=== PATIENT | male | born 1935 | race Hispanic/Latino ===

== ENCOUNTER 2023-11-16 05:43 | Emergency (ER) | payer OTHER ==
[~2023-11-16] VITALS: Ht 170.2 cm; Wt 70.3 kg
[2023-11-16 06:20] VITALS: BP 138/74; PULSE 72; RESP 18; O2SAT 99
[2023-11-17] MEDS ORDERED: DUTA0.5C37 PO (01:32)
[2023-11-17] MEDS ORDERED: TAMS-1 PO (01:32)
[2023-11-17] MEDS ORDERED: METF-446 PO (22:33)
[2023-11-17] MEDS ORDERED: ATOR40TA69 PO (22:33)
[2023-11-17] MEDS ORDERED: LISI5TAB21 PO (22:33)
[2023-11-17] MEDS ORDERED: AMLO-257 PO (22:33)
[2023-11-17] MEDS ORDERED: GLIP-162 PO (22:33)
== END 2023-11-16 08:11 | disposition home or self-care (01) ==
LOC: EDH 05:43
DX: R33.9 Retention of urine, unspecified (principal); E11.9 Type 2 diabetes mellitus without complications; E78.00 Pure hypercholesterolemia, unspecified; I10 Essential (primary) hypertension
CPT/HCPCS: 51702

== ENCOUNTER → 2023-12-23 | Outpatient (CLI) | payer OTHER ==
[~2023-12-23] MED LIST: AMLO-257 PO; AMOX-426 PO; ATOR40TA71 PO; DUTA0.5C37 PO; GLIP-162 PO; LISI5TAB21 PO; METF-446 PO; TAMS-1 PO
== END | disposition home or self-care (01) ==
LOC: SHCH 10:04
PROVIDERS: ATTEND Internal Medicine
DX: I08.3 Combined rheumatic disorders of mitral, aortic and tricuspid valves (principal); I11.9 Hypertensive heart disease without heart failure
CPT/HCPCS: 93306

== ENCOUNTER 2024-01-14 06:43 | Day surgery (SDC) | payer OTHER ==
[2024-01-12 13:38] LABS: BASOPHILS # (AUTO) 0.02 K/uL (0.00-0.20); BASOPHILS % (AUTO) 0.3 % (0.0-5.0); EOSINOPHILS # (AUTO) 0.18 K/uL (0.00-0.70); EOSINOPHILS % (AUTO) 2.5 % (0.0-8.0); HEMATOCRIT 35.5 % (42-54); IMMATURE GRANULOCYTE ABSOLUTE 0.03 K/uL (0-1); LYMPHOCYTES # (AUTO) 1.5 K/uL (1.0-4.8); LYMPHOCYTES % (AUTO) 20.1 % (21.0-51.0); MEAN CORPUSCULAR HEMOGLOBIN 30.8 pg (27.0-33.0); MEAN CORPUSCULAR HGB CONC 33.2 g/dL (32.0-36.0); MEAN CORPUSCULAR VOLUME 92.7 fL (79-99); MONOCYTES # (AUTO) 0.5 K/uL (0.1-1.0); MONOCYTES % (AUTO) 7.2 % (3.0-13.0); NEUTROPHILS % (AUTO) 69.5 % (40.0-77.0); PLATELET COUNT (AUTO) 269 K/uL (130-400); RED BLOOD CELL COUNT(AUTO) 3.83 MIL/uL (4.50-6.20); RED CELL DISTRIBUTION WIDTH 13.2 % (11.0-15.5); WHITE BLOOD COUNT (AUTO) 7.2 K/uL (4.8-10.8)
[2024-01-12 13:45] LABS: CREATININE 1.2 mg/dL (0.5-1.3); POTASSIUM 4.6 mmol/L (3.5-5.1)
[2024-01-12 14:00] VITALS: BP 138/77; PULSE 67; RESP 16
[2024-01-14] VITALS (16 sets, daily range): BP systolic 123–137; BP diastolic 47–68; PULSE 55–77; RESP 15–20
[~2024-01-14] VITALS: Ht 167.6 cm; Wt 64.2 kg
[~2024-01-14 06:43] MED LIST changes: -AMOX-426 PO; +ATOR40TA69 PO; -ATOR40TA71 PO
[2024-01-14] MEDS ORDERED: BUPIVACAINE/PF 0.25% 30ML VIAL IJ ONE (07:10)
[2024-01-14] MEDS ORDERED: ROCURONIUM BROMIDE 10MG/1ML 5ML VL ONE (07:27)
[2024-01-14] MEDS ORDERED: LIDOCAINE PF 100MG/5ML (2%) SYRINGE 5ML ONE (07:27)
[2024-01-14] MEDS ORDERED: FENTANYL CITRATE PF 50 MCG/1 ML 2ML VIAL ONE (07:28)
[2024-01-14] MEDS ORDERED: PROPOFOL 10 MG/ML 20ML VIAL IV ONE (07:28)
[2024-01-14] MEDS: CEFTRIAXONE 1G VIAL IVPB ONE ×2 (07:30→08:40)
[2024-01-14] MEDS ORDERED: ACETAMINOPHEN 1,000 MG/100 ML VIAL IV ONE (07:33)
[2024-01-14] MEDS ORDERED: FAMOTIDINE 20MG VIAL IV ONE (07:34)
[2024-01-14] MEDS: CEFTRIAXONE 1G VIAL ONE (07:34)
[2024-01-14] MEDS: 0.9%NACL 1000ML 1,000 ML IV ONE (07:34)
[2024-01-14] MEDS ORDERED: KETAMINE 50MG/ML SYRINGE 50 MG/ML DISP.SYRIN ONE (08:13)
[2024-01-14] MEDS ORDERED: DEXAMETHASONE SOD PHOSPHATE 10MG/ML 1ML VIAL ONE (08:33)
[2024-01-14] MEDS ORDERED: ONDANSETRON 4MG INJ ONE (08:33)
[2024-01-14] MEDS ORDERED: EPHEDRINE SULFATE 50 MG/ML AMPULE ONE (08:43)
[2024-01-14] MEDS ORDERED: GENTAMICIN SULFATE 80 MG/2 ML VIAL ONE (09:11)
[2024-01-14] MEDS ORDERED: NEOSTIGMINE METHYLSULFATE 1MG/ML IV ONE (09:37)
[2024-01-14] MEDS ORDERED: GLYCOPYRROLATE 0.2 MG/ML 5 ML VIAL ONE (09:37)
[2024-01-14] MEDS: PHENAZOPYRIDINE HCL 200 MG TABLET PO ONE (12:10)
== END 2024-01-14 11:55 | disposition home or self-care (01) ==
LOC: DAH 06:43
PROVIDERS: ATTEND Urology
DX: N40.1 Benign prostatic hyperplasia with lower urinary tract symptoms (principal); R33.8 Other retention of urine; I11.0 Hypertensive heart disease with heart failure; I50.9 Heart failure, unspecified; E11.9 Type 2 diabetes mellitus without complications; N13.30 Unspecified hydronephrosis; Z79.01 Long term (current) use of anticoagulants; Z79.899 Other long term (current) drug therapy
CPT/HCPCS: 80048; 85025; 36415; 52648; 82948 ×2; 88305; 93005; A6260; A4663; J7030 ×2; J7120; A4354; A4340; J3490 ×5; J3010; J1100; J2001; J1580 ×2; J0696 ×2; J2704; J2405; J2710; A4358 ×2; A4215; A4223; A4222; A4221; A4600; A4510; A5113; J0665

== ENCOUNTER 2024-02-18 23:02 | Emergency (ER) | payer OTHER ==
[~2024-02-18] VITALS: Ht 160 cm; Wt 61.2 kg
[2024-02-18 23:30] LABS: BASOPHILS # (AUTO) 0.02 K/uL (0.00-0.20); BASOPHILS % (AUTO) 0.2 % (0.0-5.0); EOSINOPHILS # (AUTO) 0.32 K/uL (0.00-0.70); EOSINOPHILS % (AUTO) 3.8 % (0.0-8.0); HEMATOCRIT 34.2 % (42-54); IMMATURE GRANULOCYTE ABSOLUTE 0.04 K/uL (0-1); LYMPHOCYTES # (AUTO) 1.6 K/uL (1.0-4.8); LYMPHOCYTES % (AUTO) 18.7 % (21.0-51.0); MEAN CORPUSCULAR HEMOGLOBIN 30.7 pg (27.0-33.0); MEAN CORPUSCULAR HGB CONC 33.9 g/dL (32.0-36.0); MEAN CORPUSCULAR VOLUME 90.5 fL (79-99); MONOCYTES # (AUTO) 0.7 K/uL (0.1-1.0); MONOCYTES % (AUTO) 8.4 % (3.0-13.0); NEUTROPHILS # (AUTO) 5.8 K/uL (1.8-7.7); NEUTROPHILS % (AUTO) 68.4 % (40.0-77.0); PLATELET COUNT (AUTO) 266 K/uL (130-400); RED BLOOD CELL COUNT(AUTO) 3.78 MIL/uL (4.50-6.20); RED CELL DISTRIBUTION WIDTH 13.9 % (11.0-15.5); WHITE BLOOD COUNT (AUTO) 8.5 K/uL (4.8-10.8)
[2024-02-18 23:39] LABS: CREATININE 1.1 mg/dL (0.5-1.3); POTASSIUM 4.1 mmol/L (3.5-5.1)
[2024-02-19 00:03] LABS: APPEARANCE,URINE CLOUDY (CLEAR); BACTERIA,URINE RARE /HPF (None Seen); BILIRUBIN,URINE NEGATIVE (NEGATIVE); COLOR,URINE LIGHT-RED (YELLOW); GLUCOSE, URINE (UA) NEGATIVE (NEGATIVE); KETONES,URINE NEGATIVE (NEGATIVE); LEUKOCYTE ESTERASE ,URINE 500 Leu/uL (NEGATIVE); NITRATE,URINE NEGATIVE (NEGATIVE); OCCULT BLOOD,URINE LARGE (NEGATIVE); PROTEIN,URINE 100 mg/dL (NEGATIVE); RBC,URINE TNTC /HPF (0-1); SQUAMOUS EPITHELIAL CELL,UR RARE /HPF (0-2); UROBILINOGEN,URINE 0.2 mg/dL (0.2-1.0); WBC CLUMP FEW /HPF (0-1); WBC,URINE TNTC /HPF (0-1)
[2024-02-19] MEDS: LIDOCAINE HCL 2% VISCOUS 15 ML UDCUP ONE (01:23)
[2024-02-19] MEDS ORDERED: CEPH500B PO (01:48)
[2024-02-19 01:51] VITALS: BP 165/68; PULSE 65; RESP 18; O2SAT 97
== END 2024-02-19 02:00 | disposition home or self-care (01) ==
LOC: EDH 23:02
DX: N39.0 Urinary tract infection, site not specified (principal); I10 Essential (primary) hypertension; E11.9 Type 2 diabetes mellitus without complications; E78.00 Pure hypercholesterolemia, unspecified; Z20.822 Contact with and (suspected) exposure to COVID-19; Z79.84 Long term (current) use of oral hypoglycemic drugs; Z79.899 Other long term (current) drug therapy; Z98.890 Other specified postprocedural states
CPT/HCPCS: 36415; 74176; 80048; 81001; 85025; 87088

== ENCOUNTER 2024-02-22 06:10 | Emergency (ER) | payer OTHER ==
[~2024-02-22] VITALS: Ht 170.2 cm; Wt 65.8 kg
[~2024-02-22 06:10] MED LIST changes: +CEPH500B PO
[2024-02-22 07:45] VITALS: BP 133/72; PULSE 78; RESP 18; O2SAT 99
== END 2024-02-22 07:47 | disposition home or self-care (01) ==
LOC: EDH 06:10
DX: T83.098A Other mechanical complication of other urinary catheter, initial encounter (principal); N39.0 Urinary tract infection, site not specified; R31.9 Hematuria, unspecified; E11.9 Type 2 diabetes mellitus without complications; E78.00 Pure hypercholesterolemia, unspecified; I10 Essential (primary) hypertension; Z79.84 Long term (current) use of oral hypoglycemic drugs; Z79.899 Other long term (current) drug therapy; Y82.9 Unspecified medical devices associated with adverse incidents; Y92.89 Other specified places as the place of occurrence of the external cause
CPT/HCPCS: 99282

== ENCOUNTER → 2024-06-12 | Outpatient (CLI) | payer OTHER | END | disposition home or self-care (01) | LOC: SHCH 14:49 | PROVIDERS: ATTEND Internal Medicine | DX: I70.293 Other atherosclerosis of native arteries of extremities, bilateral legs (principal) | CPT/HCPCS: 93925 ==

== ENCOUNTER → 2024-06-22 | Outpatient (CLI) | payer OTHER ==
[2024-06-22 16:23] LABS: BASOPHILS # (AUTO) 0.01 K/uL (0.00-0.20); BASOPHILS % (AUTO) 0.1 % (0.0-5.0); EOSINOPHILS % (AUTO) 1.2 % (0.0-8.0); HEMATOCRIT 29.5 % (42-54); IMMATURE GRANULOCYTE ABSOLUTE 0.05 K/uL (0-1); LYMPHOCYTES # (AUTO) 1.1 K/uL (1.0-4.8); LYMPHOCYTES % (AUTO) 13.3 % (21.0-51.0); MEAN CORPUSCULAR HEMOGLOBIN 30.9 pg (27.0-33.0); MEAN CORPUSCULAR HGB CONC 33.6 g/dL (32.0-36.0); MEAN CORPUSCULAR VOLUME 92.2 fL (79-99); MONOCYTES # (AUTO) 0.5 K/uL (0.1-1.0); MONOCYTES % (AUTO) 5.9 % (3.0-13.0); NEUTROPHILS # (AUTO) 6.4 K/uL (1.8-7.7); NEUTROPHILS % (AUTO) 78.9 % (40.0-77.0); PLATELET COUNT (AUTO) 228 K/uL (130-400); RED CELL DISTRIBUTION WIDTH 13.5 % (11.0-15.5); WHITE BLOOD COUNT (AUTO) 8.1 K/uL (4.8-10.8)
[2024-06-22 16:45] LABS: CREATININE 12.4 mg/dL (0.5-1.3)
[2024-06-22 16:54] LABS: POTASSIUM 7.1 mmol/L (3.5-5.1)
== END | disposition home or self-care (01) ==
LOC: LAB 15:36
PROVIDERS: ATTEND Internal Medicine
DX: I11.0 Hypertensive heart disease with heart failure (principal); I50.32 Chronic diastolic (congestive) heart failure; I38 Endocarditis, valve unspecified; I36.1 Nonrheumatic tricuspid (valve) insufficiency
CPT/HCPCS: 36415; 80048; 85025

== ENCOUNTER 2024-07-31 01:36 | Observation (INO) | payer OTHER ==
[~2024-07-31] VITALS: Ht 170.2 cm; Wt 70.2 kg
[~2024-07-31 01:36] MED LIST changes: +AMOX-426 PO; +ASCO500T20 PO; -CEPH500B PO; +DOCU-116 PO; +FLUC100T12 PO; +GABA-529 PO; +LACT-441 PO; -LISI5TAB21 PO; -METF-446 PO; +PHEN-846 PO; +POLY17PO4 PO
--- NOTE | 2024-07-31 01:50 | ERN ---
ED Note History of Present Illness Stated Complaint: LEFT LEG AND BILATERAL GROIN PAIN Chief Complaint: Multiple Complaints Time Seen by MD: 01:40 Dictation: PATIENT IS AN 89-YEAR-OLD MALE HERE WITH HIS DAUGHTER WITH COMPLAINTS OF INGUINAL AND PELVIC PAIN HE HAS HAD FOR 3-4 MONTHS. PATIENT HAS A HISTORY OF PROSTATE AND BLADDER CANCER, HYPERTENSION DIABETES IN HIS PENDING HIS 1ST APPOINTMENT WITH ONCOLOGIST TODAY AT 15:00 HOURS. DAUGHTER STATES HE HAS BEEN IN PAIN AND TAKES TRAMADOL DAILY HOWEVER IT IS LATELY NOT BEEN WORKING WELL IT WAS IN THE PAST. SHE STATES HE HAS HAD NO FEVER NO CHILLS NO NAUSEA VOMITING. BILATERAL NEPHROSTOMY TUBES ARE IN PLACE. UROLOGIST IS DR. CABELLO Allergies: Coded Allergies: No Known Allergies (Unverified Allergy, Unknown, 11/16/23) Home Meds Active Scripts Amoxicillin/Potassium Clav (Augmentin 500-125 Tablet) 500 Mg-125 Mg Tablet, 1 TAB PO BID for 3 Days, #14 TAB 0 Refills Prov:JERROD FOSS [facility] 07/24/24 Lactulose (Lactulose) 10 Gram/15 Ml Solution, 30 ML PO BID for constipation, #500 ML 0 Refills Prov:JERROD FOSS [facility] 07/24/24 Docusate Sodium (Colace) 100 Mg Capsule, 1 CAP PO BID for 30 Days, #60 CAP 0 Refills Prov:JERROD FOSS 07/24/24 Polyethylene Glycol 3350 (Miralax) 17 Gram Powd.pack, 17 GM PO DAILY for 30 Days, #30 DAYS Prov:JERROD FOSS [facility] 07/24/24 Phenazopyridine HCl (Pyridium) 100 Mg Tab, 1 TAB PO TID for urinary discomfort for 3 Days, #9 TAB 0 Refills Prov:JERROD FOSS 07/24/24 Fluconazole (Fluconazole) 100 Mg Tablet, 1 TAB PO DAILY for 7 Days, #7 TAB 0 Refills Prov:AKILAH FLYNN [employer]LECTION SPECIALIST 07/13/24 Ascorbic Acid (Vitamin C) 500 Mg Tablet, 500 MG PO DAILY, #30 TAB Prov:AKILAH FLYNN N DATA COLLECTION SPECIALIST 07/13/24 Reported Medications Gabapentin (Gabapentin) 100 Mg Capsule, 100 MG PO BID, CAP 07/19/24 Atorvastatin Calcium (LIPITOR) 40 Mg Tablet, 40 MG PO DAILY, TAB 01/13/24 Amlodipine Besylate (Amlodipine Besylate) 5 Mg Tablet, 5 MG PO DAILY, TAB 12/15/23 Glipizide (Glipizide ER) 5 Mg Tab.er.24, 5 MG PO DAILYBKFST 11/17/23 Dutasteride (Dutasteride) 0.5 Mg Capsule, 0.5 MG PO HS, CAP 11/17/23 Tamsulosin HCl (Flomax) 0.4 Mg Cap.er.24h, 0.4 MG PO HS, CAPSULE. 11/17/23 Past Medical History Past Medical History: Diabetes-Type II, Hypertension, Renal Failure, Other Additional Past Medical Hx: PROSTATE CA Surgical History: Other Surgical History Other: NEPHROSTOMY TUBES PSYCH History: no pertinent psych hx Family History: Negative Social History: Negative RN Note Reviewed/Agreed w/PFSH: Yes Review of System Dictation CONSTITUTIONAL: NEGATIVE EXCEPT FOR HPI HEAD/FACE: NEGATIVE EXCEPT FOR HPI EENT: NEGATIVE EXCEPT FOR HPI RESPIRATORY: NEGATIVE EXCEPT FOR HPI GASTROINTESTINAL/ABDOMINAL: NEGATIVE EXCEPT FOR HPI BILATERAL SUPRAPUBIC AND BLADDER PAIN. GENITOURINARY: NEGATIVE EXCEPT FOR HPI MUSCULOSKELETAL: NEGATIVE EXCEPT FOR HPI INTEGUMENTARY: NEGATIVE EXCEPT FOR HPI NEUROLOGICAL/PSYCH: NEGATIVE EXCEPT FOR HPI HEMATOLOGIC/LYMPHATIC: NEGATIVE EXCEPT FOR HPI ALL SYSTEMS NEGATIVE, EXCEPT NOTED ABOVE. 13 POINT REVIEW OF SYSTEMS ASSESSED AND ALL NEGATIVE EXCEPT FOR ABOVE. Initial Vital Sign VS Vital Signs Date Time Temp Pulse Resp B/P (MAP) Pulse Ox O2 Delivery O2 Flow Rate FiO2 07/31/24 01:37 97.3 94 20 85/63 98 Room Air 07/31/24 01:59 0 21 Physical Exam Dictation VITAL SIGNS REVIEWED GENERAL APPEARANCE: ALERT, ORIENTED X 3, PATIENT APPEARS VERY WEAK AND DEBILITATED VERY PALE HEAD AND FACE: NON-TRAUMATIC. EYES: PERRL, PINK CONJUNCTIVAS, EYELID NO TRAUMA, ANTERIOR CHAMBER WITH ARCUS SENILIS. EARS: PINNAS INTACT AND NO SIGNS OF TRAUMA OR ERYTHEMA EAR CANALS CLEAR AND NO DISCHARGE TM NO ERYTHEMA NOSE: NO DISCHARGE, NO BLEEDING. OROPHARYNX: MOUTH NORMAL, TONGUE PINK, PHARYNX CLEAR,NO ERYTHEMA, TONSILS NO EXUDATES, NO ABSCESSES NOTED, MUCOUS MEMBRANE MOIST NECK: SUPPLE, NON-TENDER, NO THYROMEGALY, NO MASSES, NO JVD, NO BRUITS BREAST:DEFERRED CHEST:NO TENDERNESS, NO CREPITUS, NO PARADOXICAL MOVEMENT, NO RETRACTIONS LUNGS:CLEAR, WELL-VENTILATED, SYMMETRIC, NO RALES, NO WHEEZING, NO RHONCHI, NO STRIDOR, GOOD BREATH SOUNDS BILATERALLY HEART: REGULAR RATE, REGULAR RHYTHM, NO MURMUR, NO GALLOPS VASCULAR: NO PERIPHERAL EDEMA, ABDOMEN: SOFT, POSITIVE BOWEL SOUNDS, NONDISTENDED, NO GUARDING, N DIFFUSE PELVIC TENDERNESS WITH PALPATION. RECTAL: DEFERRED GENITAL: DEFERRED BILATERAL NEPHROSTOMY TUBES IN PLACE DRAINING TO DRAIN BAG. NEUROLOGICAL: NORMAL SPEECH, 4/+5 STRENGTH TO ALL EXTREMITIES GENERALIZED WEAKNESS. MUSCULOSKELETAL: NECK NONTENDER, FULL RANGE OF MOTION, BACK NONTENDER, FULL RANGE OF MOTION, EXTREMITIES: NONTENDER, FULL RANGE OF MOTION SKIN: COLOR PINK, DRY, NO TURGOR, NO RASH, NO LACERATIONS, NO ABRASIONS, NO CONTUSIONS. LYMPHATIC: DEFERRED Results (Laboratory/Radiology) Laboratory/Radiology Laboratory Tests Test 07/31/24 01:52 07/31/24 02:07 White Blood Count 13.3 K/uL (4.8-10.8) H Red Blood Count 3.40 MIL/uL (4.50-6.20) L Hemoglobin 10.4 g/dL (14.0-18.0) L Hematocrit 30.7 % (42-54) L Mean Corpuscular Volume 90.3 fL (79-99) Mean Corpuscular Hemoglobin 30.6 pg (27.0-33.0) Mean Corpuscular Hemoglobin Concent 33.9 g/dL (32.0-36.0) Red Cell Distribution Width 14.0 % (11.0-15.5) Platelet Count 356 K/uL (130-400) Mean Platelet Volume 8.6 fL (7.5-10.5) Immature Granulocyte % (Auto) 0.5 % (0-1) Neutrophils (%) (Auto) 88.2 % (40.0-77.0) H Lymphocytes (%) (Auto) 6.2 % (21.0-51.0) L Monocytes (%) (Auto) 4.3 % (3.0-13.0) Eosinophils (%) (Auto) 0.6 % (0.0-8.0) Basophils (%) (Auto) 0.2 % (0.0-5.0) Neutrophils # (Auto) 11.7 K/uL (1.8-7.7) H Lymphocytes # (Auto) 0.8 K/uL (1.0-4.8) L Monocytes # (Auto) 0.6 K/uL (0.1-1.0) Eosinophils # (Auto) 0.08 K/uL (0.00-0.70) Basophils # (Auto) 0.02 K/uL (0.00-0.20) Absolute Immature Granulocyte (auto 0.07 K/uL (0-1) Nucleated Red Blood Cells 0.0 % (0.0-0.19) Sodium Level 130 mmol/L (136-145) L Potassium Level 5.0 mmol/L (3.5-5.1) Chloride Level 97 mmol/L (101-111) L Carbon Dioxide Level 22 mmol/L (21-32) Blood Urea Nitrogen 22 mg/dL (7-18) H Creatinine 1.4 mg/dL (0.5-1.3) H Glomerular Filtration Rate Calc 48 mL/min (>90) Random Glucose 204 mg/dL (70-105) H Lactic Acid Level 3.3 mmol/L (0.8-2.5) H Total Calcium 8.7 mg/dL (8.5-10.1) Magnesium Level 1.40 mg/dL (1.80-2.40) L Urine Color YELLOW (YELLOW) Urine Appearance CLOUDY (CLEAR) H Urine pH 6.0 (5.0-8.0) Urine Specific [place] 1.010 (1.001-1.031) Urine Protein 10 mg/dL (NEGATIVE) H Urine Glucose (UA) NEGATIVE mg/dL (NEGATIVE) Urine Ketones NEGATIVE mg/dL (NEGATIVE) Urine Occult Blood +- (TRACE) (NEGATIVE) H Urine Nitrate 2+ (NEGATIVE) H Urine Bilirubin NEGATIVE mg/dL (NEGATIVE) Urine Urobilinogen 0.2 mg/dL (0.2-1.0) Urine Leukocyte Esterase 75 Luz/uL (NEGATIVE) H Labs Reviewed?: Yes ED Course ED Course Orders Procedure Category Date Status Time Cbc With Differential LAB 07/31/24 In Process 01:42 Basic Metabolic Panel LAB 07/31/24 Complete 01:42 Lactic Acid LAB 07/31/24 Complete 01:42 12 Lead Ekg Tracing- EKG 07/31/24 Logged Technical 01:42 Magnesium LAB 07/31/24 Complete 01:42 Urinalysis Profile LAB 07/31/24 In Process 01:43 0.9%Nacl 1000ml (Ns PHA 07/31/24 Complete 1000ml) 02:00 Morphine 2mg Syg PHA 07/31/24 Complete (Morphine 2mg Syg) 02:00 Ondansetron 4mg Inj PHA 07/31/24 Complete (Zofran 4mg Inj) 02:00 0.9%Nacl 1000ml (Ns PHA 07/31/24 In Process 1000ml) 02:30 Ceftriaxone 2gm Vial PHA 07/31/24 Complete (Rocephin 2gm Inj) 02:30 Chest 1vw RAD 07/31/24 Taken 02:16 Culture Urine SHEYLA 07/31/24 Logged 02:26 Current Medications Medications (Trade) Dose Ordered Sig/Supriya Route PRN Reason Start Time Stop Time Status Last Admin Dose Admin Ceftriaxone Sodium (Rocephin 2gm Inj) 2 gm ONCE ONCE IVPB 07/31/24 02:30 07/31/24 02:31 DC 07/31/24 02:24 Morphine Sulfate (morPHINE 2MG SYG) 2 mg ONCE ONCE IVP 07/31/24 02:00 07/31/24 02:01 DC 07/31/24 01:52 Ondansetron HCl (zoFRAN 4MG INJ) 4 mg ONCE ONCE IVP 07/31/24 02:00 07/31/24 02:01 DC 07/31/24 01:51 Sodium Chloride 1,000 ml @ 0 mls/hr ONCE ONCE IV 07/31/24 02:00 07/31/24 02:01 DC 07/31/24 01:52 Sodium Chloride 1,836 ml @ 612 mls/hr ONCE ONCE IV 07/31/24 02:30 07/31/24 05:29 07/31/24 02:24 Vital Signs Date Time Temp Pulse Resp B/P (MAP) Pulse Ox O2 Delivery O2 Flow Rate FiO2 07/31/24 01:59 84 19 145/64 100 Room Air* 0 21 07/31/24 01:37 97.3 94 20 85/63 98 Room Air 0215, [place] [address] WBCs with a lactic acid 3.3. We will initiate septic protocol and give broad-spectrum antibiotics patient will be admitted to the hospital for further stabilization and resuscitation with fluids and antibiotics. 0240 spoke with Pancho VAZQUEZP hospitalist and reviewed labs chest x-ray and intervention for lactic acidosis hyponatremia and hypomagnesemia. He agreed to admit patient. Medical Decision Making MDM MDM: Differential diagnosis: Chronic cancer pain, electrolyte imbalance/dehydration/UTI/sepsis. Rationale: Tests considered and ordered secondary to shared decision making include: labs, and radiology Previous outside records reviewed: Old ER visits. Reviewed Risk of complication and/or morbidity or mortality of patient management: Moderate Medications-Per medication reconciliation reviewed Need for hospitalization: Patient does meet criteria for hospitalization. Patient with leukocytosis acute cystitis and sepsis. He will need continued antibiotics and fluid resuscitation and monitoring. Need for emergency major/minor surgery: No There are no social concerns with this patient. Patient is severely debilitated secondary to prostate and bladder cancer. Prescription drug management Prescriptions will include symptomatic care Patient's prior external medical records from other ER visits were reviewed by me as indicated. Prior testing and results from previous visits were reviewed. Prior tests were taken into account with medical decision making and resource utilization, independent historian/historians were used to obtain complete medical history. I independently interpreted the test that were performed, results were reviewed by me and considered findings on radiology if ordered. Medical management and examination interpretation discussions were had by me with other qualified healthcare professionals as indicated for the patient's care. DX & DISP Disposition: Inpatient Decision to Admit Time: 02:36 Departure Impression: Primary Impression: Complicated UTI (urinary tract infection) Additional Impressions: Acute kidney injury, Hyponatremia, History of prostate cancer Condition: Stable Referrals: IMCHAEL ROSENBAUM MD (PCP) Time of Disposition: 02:38 I have reviewed the case, and I agree with, Diagnosis and Plan CONSUELO OCHOA NP Jul 31, 2024 01:50
[2024-07-31] MEDS: ondanSETRON 4MG INJ IVP ONE (01:51)
[2024-07-31] MEDS: morPHINE 2 MG SYG IVP ONE (01:52)
[2024-07-31] MEDS: 0.9%NACL 1000ML 1,000 ML IV ONE (01:52)
[2024-07-31 01:59] LABS: BASOPHILS # (AUTO) 0.02 K/uL (0.00-0.20); BASOPHILS % (AUTO) 0.2 % (0.0-5.0); EOSINOPHILS # (AUTO) 0.08 K/uL (0.00-0.70); EOSINOPHILS % (AUTO) 0.6 % (0.0-8.0); HEMATOCRIT 30.7 % (42-54); IMMATURE GRANULOCYTE ABSOLUTE 0.07 K/uL (0-1); LYMPHOCYTES # (AUTO) 0.8 K/uL (1.0-4.8); LYMPHOCYTES % (AUTO) 6.2 % (21.0-51.0); MEAN CORPUSCULAR HEMOGLOBIN 30.6 pg (27.0-33.0); MEAN CORPUSCULAR HGB CONC 33.9 g/dL (32.0-36.0); MEAN CORPUSCULAR VOLUME 90.3 fL (79-99); MONOCYTES # (AUTO) 0.6 K/uL (0.1-1.0); MONOCYTES % (AUTO) 4.3 % (3.0-13.0); NEUTROPHILS # (AUTO) 11.7 K/uL (1.8-7.7); NEUTROPHILS % (AUTO) 88.2 % (40.0-77.0); PLATELET COUNT (AUTO) 356 K/uL (130-400); WHITE BLOOD COUNT (AUTO) 13.3 K/uL (4.8-10.8)
[2024-07-31 02:16] LABS: CREATININE 1.4 mg/dL (0.5-1.3); MAGNESIUM 1.4 mg/dL (1.80-2.40)
[2024-07-31] MEDS: CEFTRIAXONE 2GM VIAL IVPB ONE (02:24)
[2024-07-31] MEDS: 0.9%NACL 1000ML 1,836 ML IV ONE (02:24)
[2024-07-31 02:25] LABS: APPEARANCE,URINE CLOUDY (CLEAR); BILIRUBIN,URINE NEGATIVE (NEGATIVE); COLOR,URINE YELLOW (YELLOW); GLUCOSE, URINE (UA) NEGATIVE (NEGATIVE); KETONES,URINE NEGATIVE (NEGATIVE); LEUKOCYTE ESTERASE ,URINE 75 Leu/uL (NEGATIVE); NITRATE,URINE 2+ (NEGATIVE); PROTEIN,URINE 10 mg/dL (NEGATIVE); UROBILINOGEN,URINE 0.2 mg/dL (0.2-1.0)
[2024-07-31 02:26] LABS: ADD UA MICROSCOPIC YES
[2024-07-31 02:47] LABS: BACTERIA,URINE FEW /HPF (None Seen); MUCUS,URINE RARE LPF (None Seen)
[2024-07-31] MEDS: LACTATED RINGERS 1000ML 1,000 ML IV SCH (02:59)
[2024-07-31] MEDS ORDERED: acetaMINOPHEN 650 MG SUPPOSITORY RC PRN (03:00)
[2024-07-31] MEDS ORDERED: hydrALAZine 20MG/ML VIAL IV PRN (03:00)
[2024-07-31] MEDS ORDERED: ondanSETRON 4MG INJ IVP PRN (03:00)
[2024-07-31] MEDS ORDERED: ALBUTEROL 0.083% 2.5 MG/3 ML INH IH PRN (03:00)
[2024-07-31] MEDS ORDERED: LAbetaLOL 20MG SYG IV PRN (03:00)
[2024-07-31] MEDS ORDERED: acetaMINOPHEN 325 MG TAB PO PRN (03:00)
[2024-07-31 03:35] VITALS: O2SAT 97
[2024-07-31 06:55] VITALS: PULSE 89; RESP 20; O2SAT 98
[2024-07-31] MEDS: INSULIN humuLIN R 100 UNIT/ML 3ML SQ SCH (07:30)
--- NOTE | 2024-07-31 07:49 | EKG ---
[facility] Test Date: 2024-07-31 Test Time: 02:44:43 Pat Name: VELVET GROSS Department: [facility] Patient ID: [id number] Room: 405 Gender: M Certified Legal Secretary Specialist: [phone] Requested By: SULMA ATKINS Order Number: [id number] Reading MD: Ronaldo Knox Measurements Intervals [place] Rate: 82 P: -1 UT: 227 QRS: -14 QRSD: 90 T: 58 QT: 385 QTc: 450 Interpretive Statements Sinus rhythm Prolonged UT interval Consider anterior infarct Probable lead reversal V2 and V3 Compared to ECG 06/27/2024 09:51:23 First degree AV block now present Myocardial infarct finding still present Electronically Signed On 08-03-2024 18:40:37 MOTORBOAT OPERATOR by Ronaldo Knox Please click the below link to view image of tracing.
--- NOTE | 2024-07-31 08:20 | HP ---
[facility] HISTORY & PHYSICAL Date Patient Seen: Jul 31, 2024 Time of Visit: 08:20 Supervising Physician: [Dr. Steve] Primary Care Physician: [Dr. Marcelo López] Outpatient Specialists: [ ] Inpatient Consults: [ ] PROBLEM LIST: Acute pelvic pain due to prostate and bladder cancer per CT abdomen Acute hyponatremia, 130 on admission Acute complicated cystitis, pending urine cx Obstructive uropathy s/p bilateral nephrostomy tube placement, POA Prostate CA , High grade adenocarcinoma, diagnosed 12/2023 via Green light Laser, s/p Eligard 03/14/24 Currently on hormonal therapy, last dose on 07/18/2024 Chronic Congestive Diastolic Heart Failure, LVEF 60-65% Hypertension Diabetes mellitus type 2 Hyperlipidemia CAD BPH Failure to thrive History of Urgent HD on prior admission due to severe AIDEN from obstructive uropathy, no longer on HD Octogenarian Plan: Continue IV fluids with LR Continue Zosyn Follow urine culture Monitor WBC, lactic acid, BP/vitals Monitor for s/s of infection HPI: [This is an 89-year-old male with a history of diabetes, hypertension, CKD, obstructive uropathy secondary to prostate and bladder cancer s/p bilateral ne phrostomy tube placement who presented to the ED for evaluation of inguinal and pelvic pain which has been present the previous 3-4 months. He was pending appointment with Dr. Ch on the day of admission d/t recent dx of cancer. He has had multiple hospitalizations recently for the same. He was treated with Rocephin, morphine, Zofran and NS fluids in the ED. his labs on admission were remarkable for leukocytosis of 13, hyponatremia of 130, potassium 5.0, creatinine of 1.4, magnesium 1.4 and lactic acid of 3.3. His UA was positive for small amount of leukocyte esterase, pending urine culture. He has been initiated on maintenance fluids with LR and IV antibiotics Zosyn. He had a CXR in the ED, pending reading. Has not had any other imaging this admission but did have a CT abdomen/pelvis on 07/19 which revealed a neoplasm in the bladder, bilateral nephrostomy tubes in place with no masses stones or hydronephrosis at that time to both kidneys. Also noted was cholelithiasis without cholecystitis. Oncology was consulted on previous admission for evaluation but was cleared for discharge and advised to follow up with him (Dr. Ch) outpatient. He was discharged with augmentin, azo and fluconazole which he states he completed.] PAST MEDICAL HX: see above PAST SURGICAL HX: noncontributory SOCIAL HISTORY: No tobacco, ETOH, or illicit drug use Coded Allergies: No Known Allergies (Unverified Allergy, Unknown, 11/16/23) REVIEW OF SYSTEMS: 12 point ROS reviewed with patient. Pertinent positives mentioned above. Otherwise negative. PHYSICAL EXAM: GENERAL: alert, weak, awake oriented x 3 HEENT: EOMI, Sclera non icteric, moist mucosa NECK: Supple, no JVD, trachea midline LUNGS: Clear breath sounds bilaterally. No wheezes HEART: Regular rate and rhythm. Normal S1 and S2, without murmurs ABD: Abdomen soft, nontender. Bowel sounds present EXT: No clubbing cyanosis or edema NEURO: Alert and oriented to person, follows commands Vital Signs (last 8hr) Date Time Temp Pulse Resp B/P (MAP) Pulse Ox O2 Delivery O2 Flow Rate FiO2 07/31/24 06:55 89 20 N/A Room Air 07/31/24 04:36 80 19 134/62 100 Room Air* 0 07/31/24 03:35 N/A Room Air 07/31/24 01:59 84 19 145/64 100 Room Air* 0 07/31/24 01:37 97.3 94 20 85/63 98 Room Air LABS: Hematology Labs: Test 07/31/24 01:52 Range/Units White Blood Count 13.3 H 4.8-10.8 K/uL Red Blood Count 3.40 L 4.50-6.20 MIL/uL Hemoglobin 10.4 L 14.0-18.0 g/dL Hematocrit 30.7 L 42-54 % Mean Corpuscular Volume 90.3 79-99 fL Mean Corpuscular Hemoglobin 30.6 27.0-33.0 pg Mean Corpuscular Hemoglobin Concent 33.9 32.0-36.0 g/dL Red Cell Distribution Width 14.0 11.0-15.5 % Platelet Count 356 130-400 K/uL Mean Platelet Volume 8.6 7.5-10.5 fL Immature Granulocyte % (Auto) 0.5 0-1 % Neutrophils (%) (Auto) 88.2 H 40.0-77.0 % Lymphocytes (%) (Auto) 6.2 L 21.0-51.0 % Monocytes (%) (Auto) 4.3 3.0-13.0 % Eosinophils (%) (Auto) 0.6 0.0-8.0 % Basophils (%) (Auto) 0.2 0.0-5.0 % Neutrophils # (Auto) 11.7 H 1.8-7.7 K/uL Lymphocytes # (Auto) 0.8 L 1.0-4.8 K/uL Monocytes # (Auto) 0.6 0.1-1.0 K/uL Eosinophils # (Auto) 0.08 0.00-0.70 K/uL Basophils # (Auto) 0.02 0.00-0.20 K/uL Absolute Immature Granulocyte (auto 0.07 0-1 K/uL Nucleated Red Blood Cells 0.0 0.0-0.19 % White Cell Morphology Comment See comments Chemistry Labs: Test 07/31/24 05:20 07/31/24 01:52 Range/Units Lactic Acid Level 1.6 0.8-2.5 mmol/L Sodium Level 130 L 136-145 mmol/L Potassium Level 5.0 3.5-5.1 mmol/L Chloride Level 97 L 101-111 mmol/L Carbon Dioxide Level 22 21-32 mmol/L Blood Urea Nitrogen 22 H 7-18 mg/dL Creatinine 1.4 H 0.5-1.3 mg/dL Glomerular Filtration Rate Calc 48 >90 mL/min Random Glucose 204 H 70-105 mg/dL Total Calcium 8.7 8.5-10.1 mg/dL Magnesium Level 1.40 L 1.80-2.40 mg/dL DIAGNOSTICS / RADIOLOGY RESULTS: CT abd/pelvis from 07/19 CT ABDOMEN/PELVIS W/O CONTRAST REASON: ABD PAIN COMPARISON: None. FINDINGS: Lung bases are clear. There are no focal liver lesions. There are bilateral nephrostomy tubes which appear in good position, there is no renal mass, stone or hydronephrosis. Ureters appear unremarkable.. Spleen and pancreas appear unremarkable. There is a very small stones present within an otherwise normal-appearing gallbladder. Bowel loops appear unremarkable. This includes normal appearance of the appendix There is no evidence of free fluid or intraperitoneal air. There are no focal fluid collections. Aorta and retroperitoneum appear normal. Urinary bladder remains asymmetrically thick walled, wall thickening is more pronounced at the base of the bladder, findings are suspicious for bladder neoplasm. There is no pelvic or retroperitoneal lymphadenopathy. Remaining pelvic soft tissues appear unremarkable. The anterior abdominal wall is intact. Osseous structures appear unremarkable. There is a mildly prominent inguinal lymph nodes, nonspecific, unchanged. IMPRESSION: 1. Asymmetric wall thickening in the bladder consistent with neoplasm, unchanged. 2. Bilateral frontal ostomy tubes appear in good position, no mass, stone or hydronephrosis in either kidney. 3. Cholelithiasis without acute cholecystitis. 4. There are no acute finding in the abdomen or pelvis. PLAN NEURO: Minimize central acting medications as possible. Maintain fall precautions, adequate lighting during the day PULMONARY: Supplemental 02 as needed. Maintain aspiration precautions at all times CARDIOVASCULAR: Follow hemodynamics. Vital signs per facility protocol GI & NUTRITION: Continue with nutritional support. Continue stool softeners and laxatives as needed. KIDNEYS & ELECTROLYTES: Strict monitoring of intake, output and overall fluid balance. Avoid nephrotoxic medications to the extent possible. Medications to be dosed according to renal function. Monitor electrolytes and replace as needed ENDOCRINE: Maintain blood glucose between 100-180 at all times. Hypoglycemia protocol in place INFECTIOUS DISEASE: Trend temperature, WBC and procalcitonin level Follow cultures, deescalate antibiotics as soon as possible. Panculture if new onset fever ONCOLOGY/HEMATOLOGY/COAGULATION: Monitor for s/s of bleeding Monitor hemoglobin, coagulation studies as needed SKIN: Pressure ulcer prevention per facility protocol Specialty mattress ORTHO/REHAB: Continue PT/OT Prophylaxis: Continue GI and DVT prophylaxis Code Status: Full Resuscitation Disposition: TBD Other: Total patient care time exceeds 35 minutes excluding all procedures. SNOA PORTILLO Jul 31, 2024 08:20
--- NOTE | 2024-07-31 08:30 | HMCIMG ---
CHEST 1VW REASON: SOB/chest pain COMPARISON: 07/19/2024 FINDINGS: There is some patchy infiltrate present peripherally in both lung bases, this appears new since prior exam. Lungs are otherwise clear. Heart size is normal. There is no vascular congestion or pleural effusion. Mediastinum and bony thorax appear unremarkable. IMPRESSION: 1. Mild patchy infiltrate peripherally in both lung bases.
[2024-07-31] MEDS ORDERED: PHENAZOPYRIDINE HCL PO SCH (09:00)
[2024-07-31] MEDS ORDERED: polyETHYLene GLYCol 3350 17 GM POWD.PACK PO SCH (09:00)
[2024-07-31] MEDS ORDERED: PANTOPrazole 40 MG TAB DR PO SCH (09:00)
[2024-07-31] MEDS ORDERED: ASCORBIC ACID 500 MG TAB PO SCH (09:00)
--- NOTE | 2024-07-31 09:55 | NUR ---
DCP: HOME with [facility] met with pt and Ijeoma Castillo [phone]. reports tat she assists pt as needed with ADLS and ambulation. Pt has a walker with seat, has seen pt twice before his admission. They want to return to their services at [place]. signed consent. Consent in chart. PCP is Sanjuanita López and uses [facility] [address] for rx. [facility] home with current services Addendum: 07/31/24 at 1006 by MICHAEL ISBELL Amended: Links added.
[2024-07-31] MEDS: ZOSYN 3.375GM +NS 50ML IV SCH (10:21)
[2024-07-31] MEDS: PANTOPrazole 40 MG/VIAL ONE (10:21)
[2024-07-31] MEDS ORDERED: PHARMACY COMMUNICATION MISC SCH (11:00)
[2024-07-31] MEDS: GABApentin 100 MG CAPSULE PO SCH (11:26)
[2024-07-31] MEDS: amLODIPine 5 MG TAB PO SCH (11:26)
[2024-07-31] MEDS: HYDROcodone/APAP 5/325 1 TAB TABLET PO PRN (11:26)
[2024-07-31] MEDS: atorVAStatin 40 MG TABLET PO SCH (11:26)
[2024-07-31] MEDS: doCUSate SODIUM 100 MG CAP PO SCH (11:26)
[2024-07-31] MEDS: LACTULOSE 20 GM/30 ML UDCUP PO SCH (11:26)
[2024-07-31] MEDS: ASCORBIC ACID 500 MG TAB PO SCH (11:27)
[2024-07-31] MEDS: PANTOPrazole 40 MG/VIAL IVP ONE (11:27)
[2024-07-31] MEDS: polyETHYLene GLYCol 3350 17 GM POWD.PACK PO SCH (11:27)
[2024-07-31] MEDS ORDERED: metoPROLOL tartRATE 1 MG/ML 5ML VIAL IV PRN (13:00)
[2024-07-31 19:00] VITALS: BP 110/56; PULSE 66; RESP 17; TEMP 98.1
[2024-07-31] MEDS ORDERED: TRAM50TA4 PO (20:50)
[2024-07-31] MEDS: tamSULOsin HCL 0.4 MG CAP.ER.24H PO SCH (20:55)
[2024-07-31] MEDS: (Dutasteride 0.5 MG) PO SCH (21:02)
[2024-07-31 23:51] VITALS: BP 107/56; PULSE 68; RESP 16; TEMP 97.6
[2024-08-01 04:33] VITALS: BP 104/55; PULSE 77; RESP 18; TEMP 97.9
[2024-08-01 05:47] LABS: BASOPHILS # (AUTO) 0.01 K/uL (0.00-0.20); BASOPHILS % (AUTO) 0.1 % (0.0-5.0); EOSINOPHILS # (AUTO) 0.09 K/uL (0.00-0.70); EOSINOPHILS % (AUTO) 0.9 % (0.0-8.0); HEMATOCRIT 28.3 % (42-54); IMMATURE GRANULOCYTE ABSOLUTE 0.04 K/uL (0-1); LYMPHOCYTES # (AUTO) 1.1 K/uL (1.0-4.8); LYMPHOCYTES % (AUTO) 10.8 % (21.0-51.0); MEAN CORPUSCULAR HEMOGLOBIN 30.3 pg (27.0-33.0); MEAN CORPUSCULAR HGB CONC 32.9 g/dL (32.0-36.0); MEAN CORPUSCULAR VOLUME 92.2 fL (79-99); MONOCYTES # (AUTO) 0.7 K/uL (0.1-1.0); MONOCYTES % (AUTO) 7.1 % (3.0-13.0); NEUTROPHILS # (AUTO) 7.8 K/uL (1.8-7.7); NEUTROPHILS % (AUTO) 80.7 % (40.0-77.0); PLATELET COUNT (AUTO) 310 K/uL (130-400); RED BLOOD CELL COUNT(AUTO) 3.07 MIL/uL (4.50-6.20); RED CELL DISTRIBUTION WIDTH 14.2 % (11.0-15.5); WHITE BLOOD COUNT (AUTO) 9.7 K/uL (4.8-10.8)
[2024-08-01 06:07] LABS: CREATININE 1.1 mg/dL (0.5-1.3); MAGNESIUM 1.4 mg/dL (1.80-2.40); PHOSPHORUS 3.3 mg/dL (2.5-4.9); POTASSIUM 4.7 mmol/L (3.5-5.1)
[2024-08-01] MEDS: MAGNESIUM 2GM PREMIX 50ML 50 ML IV SCH (06:39)
[2024-08-01 06:55] VITALS: PULSE 69; RESP 20; O2SAT 99
[2024-08-01 08:00] VITALS: BP 101/57; PULSE 69; RESP 16; TEMP 97.7
[2024-08-01 08:45] VITALS: O2SAT 97
[2024-08-01] MEDS: PANTOPrazole 40 MG/VIAL IVP SCH (08:50)
[2024-08-01 12:00] VITALS: BP 132/70; PULSE 79; RESP 16; TEMP 97.6
--- NOTE | 2024-08-01 13:43 | DS ---
[facility] DISCHARGE SUMMARY Date Patient Seen: Aug 01, 2024 Time of Visit: 13:42 Supervising Physician: [Dr. Steve] Primary Care Physician: [Dr. 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 Ch tomorrow for evaluation and treatment plan HOSPITAL COURSE: HPI (per admitting provider) [This is an 89-year-old male with a history of diabetes, hypertension, CKD, obstructive uropathy secondary to prostate and bladder cancer s/p bilateral nephrostomy tube placement who presented to the ED for evaluation of inguinal and pelvic pain which has been present the previous 3-4 months. He was pending appointment with Dr. Ch on the day of admission d/t recent dx of cancer. He has had multiple hospitalizations recently for the same. He was treated with Rocephin, morphine, Zofran and NS fluids in the ED. his labs on admission were remarkable for leukocytosis of 13, hyponatremia of 130, potassium 5.0, creatinine of 1.4, magnesium 1.4 and lactic acid of 3.3. His UA was positive for small amount of leukocyte esterase, pending urine culture. He has been initiated on maintenance fluids with LR and IV antibiotics Zosyn. He had a CXR in the ED, pending reading. Has not had any other imaging this admission but did have a CT abdomen/pelvis on 07/19 which revealed a neoplasm in the bladder, bilateral nephrostomy tubes in place with no masses stones or hydronephrosis at that time to both kidneys. Also noted was cholelithiasis without cholecystitis. Oncology was consulted on previous admission for evaluation but was cleared for discharge and advised to follow up with him (Dr. Ch) outpatient. He was discharged with augmentin, azo and fluconazole which he states he completed. His nephrostomy tubes are both patent and actively draining. His urine culture was positive but pending susceptibility studies. His WBC normalized, and AIDEN resolved. He has a hx of terry in urine on prior culture, will send fluconazole given reinfection. I spoke to several family members at bedside to inform them that he should visit with Dr. Ch for his cancer treatment plan. Pain prescription meds were sent along with an antibiotic and an antifungal.] ACTIVE PROBLEM LIST FOR THE HOSPITALIZATION: Acute pelvic pain due to prostate and bladder cancer per CT abdomen Acute hyponatremia, 130 on admission Acute complicated cystitis, pending urine cx Acute dehydration resolved Obstructive uropathy s/p bilateral nephrostomy tube placement, POA Prostate CA , High grade adenocarcinoma, diagnosed 12/2023 via Green light Laser, s/p Eligard 03/14/24 Currently on hormonal therapy, last dose on 07/18/2024 Chronic Congestive Diastolic Heart Failure, LVEF 60-65% Hypertension Diabetes mellitus type 2 Hyperlipidemia CAD BPH Failure to thrive History of Urgent HD on prior admission due to severe AIDEN from obstructive uropathy, no longer on HD Octogenarian CHRONIC PROBLEMS: continue previous management per PCP unless otherwise indicated SENIOR RESEARCH EXECUTIVE FINDINGS/RECOMMENDATIONS: [F/U with oncology tomorrow] DISCHARGE MEDICATIONS: Continue all medications as listed below. Start augmentin and fluconazole. Pt hemodynamically stable and afebrile at time of discharge. PCP notified of patients admission, hospital course and discharge. New Medications: Amoxicillin/Potassium Clav (Amox Tr-K Clv 875-125 mg Tab) 875 Mg-125 Mg Tablet 1 TAB PO BID for 10 Days, #20 TAB 0 Refills Continued Medications: Amlodipine Besylate (Amlodipine Besylate) 5 Mg Tablet 5 MG PO DAILY, TAB Ascorbic Acid (Vitamin C) 500 Mg Tablet 500 MG PO DAILY, #30 TAB Atorvastatin Calcium (Lipitor) 40 Mg Tablet 40 MG PO DAILY, TAB Docusate Sodium (Colace) 100 Mg Capsule 1 CAP PO BID for 30 Days, #60 CAP 0 Refills Dutasteride (Dutasteride) 0.5 Mg Capsule 0.5 MG PO HS, CAP Fluconazole (Fluconazole) 100 Mg Tablet 1 TAB PO DAILY for 14 Days, #7 TAB 0 Refills (This prescription has been r enewed) Gabapentin (Gabapentin) 100 Mg Capsule 100 MG PO BID, CAP Glipizide (Glipizide ER) 5 Mg Tab.er.24 5 MG PO DAILYBKFST Lactulose (Lactulose) 10 Gram/15 Ml Solution 30 ML PO BID for constipation, #500 ML 0 Refills Phenazopyridine HCl (Pyridium) 100 Mg Tab 1 TAB PO TID for urinary discomfort for 3 Days, #9 TAB 0 Refills Polyethylene Glycol 3350 (Miralax) 17 Gram Powd.pack 17 GM PO DAILY for 30 Days, #30 DAYS Tamsulosin HCl (Flomax) 0.4 Mg Cap.er.24h 0.4 MG PO HS, CAPSULE. Tramadol Hcl (Tramadol HCl) 50 Mg Tablet 1 TAB PO Q8HRS PRN for SEVERE PAIN (7-10) PHYSICAL EXAM: GENERAL: alert, weak, awake oriented x 3, moderate to severe pain to LLE HEENT: EOMI, Sclera non icteric, moist mucosa NECK: Supple, no JVD, trachea midline LUNGS: Clear breath sounds bilaterally. No wheezes HEART: Regular rate and rhythm. Normal S1 and S2, without murmurs ABD: Abdomen soft, nontender. Bowel sounds present EXT: No clubbing cyanosis (+) 2 edema to LLE , hardened lymphnodes to L-inguinal region palpable NEURO: Alert and oriented to person, follows commands FOLLOW-UP: F/U with Dr. Ch tomorrow in office for evaluation and treatment recommendation. Start Augmentin X 7 days. F/U with urine culture result outpatient and adjust antibiotics as indicated. Start fluconazole X 14 days. Re peat UA with PCP. Keep appt with Dr. Love and Dr. Prather. F/U with PCP outpatient to coordinate care with specialists. RECOMMENDATIONS: See Discharge Instructions This case was seen and discussed with my supervising physician. More than 30 minutes spent on discharge process, including evaluation of the patient, discussion with nursing staff, medication reconciliation and follow-up appointments SONA PORTILLO Aug 01, 2024 13:43
[2024-08-01] MEDS ORDERED: AMOX1TAB16 PO (13:56)
[2024-08-01] MEDS ORDERED: FLUC100T12 PO (13:56)
--- NOTE | 2024-08-01 15:00 | NUR ---
DISCHARGE DISCHARGE ORDERS OBTAINED FOR PATIENT TO BE DISCHARGED HOME. IV DISCONTINUED, CATHETER INTACT, NO S/S OF INFECTION NOTED TO AREA. PATIENT TOLERATED WELL. BANDS REMOVED. NEPHROSTOMY TUBES DRAINED AND IN PLACE. FOLLOW UP APPOINTMENT MADE WITH DR. HERNANDEZ FOR 08/04/2024 @ 8:15AM. PATIENT VOICED UNDERSTANDING. PENDING FAMILY TO ARRIVE FOR TRANSPORTATION AND INSTRUCTIONS FOR DISCHARGE.
[2024-08-01 16:00] VITALS: BP 119/63; PULSE 75; RESP 16
--- NOTE | 2024-08-01 16:00 | NUR ---
DISCHARGE CONTACTED DAUGHTER, GABBY GROSS, REGARDING PATIENT'S DISCHARGE AND PENDING TRANSPORTATION. NO ANSWER, LEFT VM FOR DAUGHTER TO CALL BACK. PENDING CALLBACK
--- NOTE | 2024-08-01 16:41 | NUR ---
DISCHARGE SECOND ATTEMPT DISCHARGE CONTACTED DAUGHTER, GABBY GROSS, REGARDING PATIENT'S DISCHARGE AND PENDING TRANSPORTATION. NO ANSWER, LEFT VM FOR DAUGHTER TO CALL BACK. PENDING CALLBACK
--- NOTE | 2024-08-01 17:21 | NUR ---
DISCHARGE DISCHARGE INSTRUCTIONS AND DOCUMENTATION GIVEN TO DAUGHTER IN LAW AND AT BEDSIDE. BOTH VOICED UNDERSTANDING. NO QUESTIONS ASKED AT THIS TIME. PROVIDED WITH FOLLOW UP APPOINTMENT AND RX FOR PAIN MEDICATION.
--- NOTE | 2024-08-01 17:36 | NUR ---
DISCHARGE PATIENT LEFT VIA WHEELCHAIR ACCOMPANIED BY AND DAUGHTER IN LAW. NO S/S OF DISTRESS NOTED.
[2024-08-01] MEDS ORDERED: atorVAStatin 40 MG TABLET PO SCH (21:00)
[2024-08-02] MEDS ORDERED: HYDR-4068 PO (12:55)
== END 2024-08-01 17:40 | disposition home or self-care (01) ==
LOC: EDH 01:36 → OBSVTOIN 02:47 → INTOOBSV 02:47 → EDHIP 02:47 → 4BH 19:00
PROVIDERS: ADMIT Internal Medicine Critical Care Medicine; ATTEND Internal Medicine Critical Care Medicine
DX: N30.00 Acute cystitis without hematuria (principal); R10.2 Pelvic and perineal pain; E87.1 Hypo-osmolality and hyponatremia; N13.9 Obstructive and reflux uropathy, unspecified; I13.0 Hypertensive heart and chronic kidney disease with heart failure and stage 1 through stage 4 chronic kidney disease, or unspecified chronic kidney disease; E11.22 Type 2 diabetes mellitus with diabetic chronic kidney disease; N18.9 Chronic kidney disease, unspecified; I50.32 Chronic diastolic (congestive) heart failure; E78.5 Hyperlipidemia, unspecified; I25.10 Atherosclerotic heart disease of native coronary artery without angina pectoris; N40.0 Benign prostatic hyperplasia without lower urinary tract symptoms; D49.4 Neoplasm of unspecified behavior of bladder; N17.9 Acute kidney failure, unspecified; R62.7 Adult failure to thrive; E86.0 Dehydration; Z79.899 Other long term (current) drug therapy; Z85.51 Personal history of malignant neoplasm of bladder; Z68.24 Body mass index [BMI] 24.0-24.9, adult; Z85.46 Personal history of malignant neoplasm of prostate
CPT/HCPCS: 99285; 83735 ×2; 80048 ×2; 83880; 85025 ×2; 87086 ×2; 87186; 82948 ×6; 83605 ×3; 81001; 36415 ×2; 71045; 96365; 96366 ×2; 96375 ×2; 93005; 94664; 96367; 84100; 84145; J7120; J2270; J7030 ×2; J0696; J2405 ×3; J2543 ×4; J2470 ×2; G0378 ×4; J3475